=== PATIENT | female | born 2000 | race African-American/Black ===

== ENCOUNTER 2019-01-23 20:07 | Emergency (ER) | payer SELFPAY ==
[~2019-01-23] VITALS: Ht 162.6 cm; Wt 59.0 kg
[2019-01-23 20:46] VITALS: BP 106/69
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
[2019-01-23] MEDS ORDERED: IBUPROFEN600 MG ORAL (22:05)
[2019-01-23] MEDS ORDERED: CYCLOBENZAPRINE10 MG ORAL (22:05)
[2019-01-23 22:21] VITALS: BP 106/69
--- NOTE | 2019-01-23 22:21 | NUR ---
ER Nurse Note: Pt signed waver for radiology. Pt seen, treated, medically cleared for discharge by ERMD. Discharge instuctions and prescriptions given with repeat verbalization by pt. Emphasized to follow up with primay care provider; take whole course of medication. Explained each medication. All orders completed per ERMD orders. Pt a&ox4, VSS, no signs of distress. ID band removed. All questions answered per pt's questions. Pt left with all belongings, left with own transportation.
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
--- NOTE | 2019-01-24 12:43 | Diagnostic Imaging Report ---
Indication: Back pain Comparison: None Findings: 3 views of the lumbar spine were obtained. No acute fracture or malalignment is identified. Vertebral body heights and disk spaces are well maintained. Posterior elements are unremarkable. Impression: No acute findings.
== END 2019-01-23 22:21 | disposition home or self-care (01) ==
LOC: EMR 20:47
DX: S13.9XXA Sprain of joints and ligaments of unspecified parts of neck, initial encounter (principal); S33.5XXA Sprain of ligaments of lumbar spine, initial encounter; V43.52XA Car driver injured in collision with other type car in traffic accident, initial encounter; Y92.410 Unspecified street and highway as the place of occurrence of the external cause
CPT/HCPCS: 72020; 99283

== ENCOUNTER 2019-06-04 07:42 | Emergency (ER) | payer BC ==
[~2019-06-04] VITALS: Ht 165.1 cm; Wt 59.0 kg
[~2019-06-04 07:42] MED LIST: CYCLOBENZAPRINE10 MG ORAL; IBUPROFEN600 MG ORAL
[2019-06-04 08:07] VITALS: BP 125/68
--- NOTE | 2019-06-04 08:08 | NUR ---
ED Nurse Note:pt. came from home with c/o sore throat, no fever
[2019-06-04] MEDS ORDERED: PENICILLIN V P500 MG PO (08:16)
--- NOTE | 2019-06-04 08:17 | Emergency Room Report ---
History of Present Illness General Chief Complaint: Sore Throat Source: Patient Present Illness HPI 18-year-old female with no past medical history presents to emergency room with sore throat and pain for 1 day duration. She denies any associated cough, congestion, fever. She does note pain to her left neck. She denies taking any medications for symptoms. Allergies: Coded Allergies: No Known Allergies (Unverified , 01/23/19) Patient History Last Menstrual Period: 05/09/19 Nursing Documentation-[facility] Past Medical History: No Stated History Review of Systems Constitutional: Denies: fever Eye: Denies: acuity changes ENT: Reports: throat pain Respiratory: Denies: cough, shortness of breath Cardiovascular: Denies: chest pain Gastrointestinal: Denies: nausea, vomiting Skin: Denies: rash Neurological: Denies: headache Physical Exam Vital Signs Date Time Temp Pulse Resp B/P (MAP) Pulse Ox O2 Delivery O2 Flow Rate FiO2 06/04/19 07:46 98.2 101 16 125/68 (87) 98 Room Air Sp02 EP Interpretation: reviewed, normal General Appearance: normal inspection, well appearing, no apparent distress, alert Head: normocephalic, atraumatic Eyes: bilateral eye normal inspection, bilateral eye PERRL ENT: EOM grossly intact, normal voice, TMs + canals normal, uvula midline, moist mucus membranes, tonsillar swelling - Left-sided, pharyngeal erythema - Bilateral, tonsillar exudate - Left-sided Neck: normal inspection, full range of motion, other - No tenderness over mastoid Respiratory: no respiratory distress, speaking full sentences Cardiovascular #1: normal peripheral pulses Cardiovascular #2: 2+ radial (R), 2+ radial (L) Musculoskeletal: moves extm spontaneously Neurologic: no focal defects Skin: warm/dry Lymphatic: adenopathy - Left submandibular Medical Decision Making Diagnostic Impression: Primary Impression: Sore throat Additional Impression: Strep pharyngitis ER Course 18-year-old female presents with sore throat for 1 day duration found to have left-sided lymphadenopathy and left tonsillar swelling. Patient symptoms and signs consistent with strep throat as per center criteria as patient has no cough. Patien will be treated with oral antibiotics. Patient has no signs of airway compromise or stridor. Patient is stable for outpatient follow-up and discharge. Patient given recommendations to see ENT in 1 to 2 days for reevaluation of tonsillar swelling. Patient advised to return to emergency room if she has any worsening pain, unable to tolerate medications or any new symptoms. Patient understands all instructions. Last Vital Signs Date Time Temp Pulse Resp B/P (MAP) Pulse Ox O2 Delivery O2 Flow Rate FiO2 06/04/19 08:07 98.2 68 16 125/68 98 Room Air Disposition: HOME, SELF-CARE Condition: Stable Scripts Penicillin V Potassium* (PENVK*) 500 Mg Tablet 500 MG PO Q8HR for 10 Days, #30 TAB 0 Refills Prov: Jamar Armijo M.D. 06/04/19 Referrals: [facility] + [facility] Patient Instructions: Sore Throat, Strep Throat Additional Instructions: Please follow-up with your primary care doctor in 2 to 3 days for reevaluation. Please see ENT if any worsening or new symptoms. Return immediately to emergency room if you have difficulty breathing, or unable to tolerate medications. Jamar Armijo M.D. Jun 04, 2019 08:17
--- NOTE | 2019-06-04 08:30 | NUR ---
ER DISCHARGE NOTE: Patient is cleared to be discharged per ERMD, pt is aox4, on room air, with stable vital signs. pt was given dc and prescription instructions, pt was able to verbalize understanding, pt is able to ambulate with steady gait. pt took all belongings.
[2019-06-04 08:31] VITALS: BP 125/68
== END 2019-06-04 08:30 | disposition home or self-care (01) ==
LOC: EMR 08:05
DX: J02.0 Streptococcal pharyngitis (principal)
CPT/HCPCS: 99282